=== PATIENT | female | born 1995 | race Hispanic/Latino ===

== ENCOUNTER 2023-05-11 19:30 | Emergency (ER) | payer MEDICAID, OTHER ==
[2023-05-11 21:05] LABS: #Eosinphils 0.2 10x3/uL (0.0-0.5); #Monocytes 0.7 10x3/uL (0.0-1.1); #Neutrophils 5.4 10x3/uL (1.5-8.4); %Basophils 0.3 % (0.0-2.0); %Eosinophils 1.7 % (0.0-6.0); %Lymphocytes 28.1 % (18.0-47.0); %Monocytes 7.4 % (0.0-10.0); %Neutrophils 61.6 % (40.0-75.0); Hematocrit 32.7 % (34.9-44.5); Hemoglobin 10.1 g/dL (12.0-15.5); Mean Corpuscular HGB CONC 30.9 g/dL (32.0-36.0); Mean Corpuscular Hemoglobin 23.4 pg (27.0-33.0); Mean Corpuscular Volume 75.7 fl (81.6-98.3); Mean Platelet Volume 10.3 fl (7.4-10.4); Platelet Count 285 10x3/uL (150-450); RBC Distribution Width 15.5 % (11.5-14.5); Red Blood Cell (RBC) Count 4.32 10x6/uL (3.90-5.03); White Blood Cell (WBC) Count 8.8 10x3/uL (3.5-10.5)
[2023-05-11 21:18] LABS: ALT (SGPT) 9 U/L (8-55); AST (SGOT) 13 U/L (5-34); Albumin 3.3 g/dL (3.5-5.0); Alkaline Phosphatase 181 U/L (40-110); Anion Gap 13 mmol/L (10-20); BUN (Urea Nitrogen) 11 mg/dL (7.0-18.7); Bilirubin, Total 0.3 mg/dL (0.2-1.2); Calc. Creatinine Clearance 0 mL/min (70-130); Calcium 8.6 mg/dL (7.8-10.44); Carbon Dioxide 20 mmol/L (22-29); Chloride 107 mmol/L (98-107); Estimated GFR 125; Globulin 3.7 g/dL (2.4-3.5); Glucose 91 mg/dL (70-105); Potassium 3.9 mmol/L (3.5-5.1); Sodium 136 mmol/L (136-145)
== END 2023-05-11 23:20 | disposition home or self-care (01) ==
LOC: CSHERS 19:30
DX: O99.891 Other specified diseases and conditions complicating pregnancy (principal); R06.00 Dyspnea, unspecified; Z3A.35 35 weeks gestation of pregnancy
CPT/HCPCS: 71045; 80053; 85025; 93005

== ENCOUNTER 2025-04-17 10:54 | Emergency (ER) | payer MEDICAID ==
[2025-04-17] MEDS ORDERED: Ketorolac Tromethamine 30 MG (1 mL) VIAL ONE (12:33)
[2025-04-17 12:35] LABS: #Basophils 0.06 10x3/uL (0.0-0.2); #Eosinophils 0.03 10x3/uL (0.0-0.5); #Monocytes 0.42 10x3/uL (0.0-1.1); #Neutrophils 10.23 10x3/uL (1.5-8.4); %Basophils 0.5 % (0.0-2.0); %Eosinophils 0.3 % (0.0-6.0); %Lymphocytes 7.1 % (18.0-47.0); %Monocytes 3.6 % (0.0-10.0); %Neutrophils 88.2 % (40.0-75.0); Hematocrit 40.8 % (34.9-44.5); Hemoglobin 13.4 g/dL (12.0-15.5); Mean Corpuscular Hemoglobin 26.3 pg (27.0-33.0); Mean Corpuscular Volume 80.2 fL (81.6-98.3); Platelet Count 226 10x3/uL (150-450); Red Blood Cell (RBC) Count 5.09 10x6/uL (3.90-5.03); White Blood Cell (WBC) Count 11.60 10x3/uL (3.5-10.5)
[2025-04-17 12:48] LABS: ALT (SGPT) 42 U/L (Less than 34); AST (SGOT) 36 U/L (11-34); Albumin 3.7 g/dL (3.1-4.5); Alkaline Phosphatase 155 U/L (40-110); Anion Gap 11 mmol/L (10-20); BUN (Urea Nitrogen) 8 mg/dL (7.0-18.7); Bilirubin, Total 0.9 mg/dL (0.3-1.2); Calc. Creatinine Clearance 0 mL/min (70-130); Calcium 8.8 mg/dL (7.8-10.44); Carbon Dioxide 21 mmol/L (22-29); Chloride 103 mmol/L (98-107); Globulin 4.4 g/dL (2.4-3.5); Glucose 105 mg/dL (70-105); Magnesium 1.5 mg/dL (1.6-2.6); Potassium 3.4 mmol/L (3.5-5.1); Sodium 132 mmol/L (136-145)
[2025-04-17] MEDS ORDERED: Acetaminophen 500 MG TAB ONE (12:55)
[2025-04-17 13:08] LABS: BHCG - Serum Negative (NEGATIVE); Pregs Control Background? CLEAR/WHITE (CLR/WHITE); Pregs Control Bar Appear? YES (CONTROL BAR)
[2025-04-17 15:44] LABS: Glucose, Urine (Dipstick) Normal (Negative); Leukocyte Negative (Negative); Protein, Urine (Dipstick) Negative (Neg-Trace); Specific Gravity, Urine 1.005 (1.005-1.030)
[2025-04-17 16:03] LABS: Bacteria/HPF Rare-Few HPF (None Seen); CAUTI Indications for Culture Pelvic or flank pain; RBC/HPF 0-3 HPF (0-3); Urine Culture Reflex No No; WBC/HPF None Seen HPF (0-3)
== END 2025-04-17 16:26 | disposition home or self-care (01) ==
LOC: CSHERS 10:54
DX: K52.9 Noninfective gastroenteritis and colitis, unspecified (principal); D72.829 Elevated white blood cell count, unspecified
CPT/HCPCS: 36415; 71045; 74177; 80053; 81001; 83605; 83690; 83735; 84703; 85025; 87040; 87086; 87428; 93005; 96374; J1885